=== PATIENT | female | born 1930 | race African-American/Black ===

== ENCOUNTER → 2017-03-01 | Day surgery (SDC) | payer MEDICARE, MEDICAID ==
[~2017-03-01] MED LIST: AMLO5TAB4 PO; ATOR20TA PO; LIDOCAINE HCL 1% 20ML VIAL (Pyxis) INJ ONE; METO5TAB99 PO; POTA40LI2 PO; SODIUM BICARBONATE 4% (2.4MEQ) 5ML VIAL IV ONE; UNKNOWN MEDS
== END | disposition home or self-care (01) ==
LOC: RAD 09:48
PROVIDERS: ATTEND Family Medicine Adult Medicine
DX: E04.1 Nontoxic single thyroid nodule (principal)
CPT/HCPCS: 10022; 76942; 88172; 88173; J3490

== ENCOUNTER 2017-08-15 22:45 | Inpatient (IN) | payer MEDICARE, MEDICAID ==
[~2017-08-15] VITALS: Ht 157.5 cm; Wt 66.8 kg
[~2017-08-15 22:45] MED LIST changes: -LIDOCAINE HCL 1% 20ML VIAL (Pyxis) INJ ONE; -SODIUM BICARBONATE 4% (2.4MEQ) 5ML VIAL IV ONE
[2017-08-15] MEDS ORDERED: ONDANSETRON HCL 4MG/2ML VIAL IV STA (23:46)
[2017-08-15] MEDS ORDERED: SODIUM CHLORIDE 0.9% 1,000 ML IV ONE (23:46)
[2017-08-15] MEDS ORDERED: MORPHINE SULFATE 4 MG/ML CPJ (NOT FOR IM USE) IV STA (23:46)
[2017-08-16 00:14] LABS: BASOPHILS % 0.7 % (0.0-2.0); EOSINOPHILS % 0.5 % (0.0-5.0); HEMATOCRIT. 44.8 % (36.0-48.0); HEMOGLOBIN. 15.3 g/dL (12.0-16.0); LYMPHOCYTES % 12.3 % (20.0-50.0); MEAN CORPUSCULAR HEMOGLOBIN 31.5 pg (28.0-32.0); MEAN CORPUSCULAR VOLUME 92.2 fL (81.0-99.0); MEAN PLATELET VOLUME 8.4 fl (7.4-10.4); NEUTROPHILS % 78.5 % (40.0-76.0); PLATELET 165 x1000/uL (130-400); RED BLOOD CELL COUNT 4.86 mill/uL (4.2-5.4); RED CELL DISTRIBUTION WIDTH 16.2 % (11.6-14.6)
[2017-08-16 00:22] LABS: CHLORIDE 106 mEq/L (98-107)
[2017-08-16 00:34] LABS: CARBON DIOXIDE 23 mEq/L (21-32)
[2017-08-16 01:00] LABS: INR 1.1; PARTIAL THROMBOPLASTIN TIME 22.8 sec (23.4-31.0); PROTHROMBIN TIME 11.1 sec (9.4-11.6)
[2017-08-16] MEDS ORDERED: ENOXAPARIN 100MG/ML SYR SUBCUT ONE (06:30)
[2017-08-16] MEDS ORDERED: CLONIDINE 0.1MG TABLET PO PRN (07:45)
[2017-08-16] MEDS ORDERED: ONDANSETRON HCL 4MG/2ML VIAL IV PRN (07:45)
[2017-08-16] MEDS ORDERED: ACETAMINOPHEN 325MG TABLET PO PRN (07:45)
[2017-08-16] MEDS: DEXT 5%/0.45% NACL 1000ML 1,000 ML IV SCH ×2 (08:18→16:41)
[2017-08-16] MEDS ORDERED: HEPARIN SODIUM 1,000 UNIT/1ML VIAL IV ONE (08:57)
[2017-08-16] MEDS ORDERED: FENTANYL CITRATE/PF 50MCG/ML 2ML VIAL ONE (09:04)
[2017-08-16] MEDS ORDERED: MIDAZOLAM HCL 2 MG/2 ML VIAL ONE ×2 (09:04→09:52)
[2017-08-16] MEDS ORDERED: LIDOCAINE HCL 1% 20ML VIAL (Pyxis) INJ ONE (09:05)
[2017-08-16] MEDS ORDERED: IODIXANOL 320MG/ML 100 ML BOTTLE IV ONE ×2 (09:05→10:46)
[2017-08-16] MEDS ORDERED: ALTEPLASE 8 MG in SODIUM CHLORIDE 0.9% 100 ML ITC SCH (09:15)
[2017-08-16] MEDS ORDERED: ALTEPLASE 2MG/VIAL ITC ONE (09:15)
[2017-08-16] MEDS ORDERED: MORPHINE SULFATE 4 MG/ML CPJ (NOT FOR IM USE) IV PRN (09:45)
[2017-08-16] MEDS ORDERED: IOVERSOL 240MG/ML 100ML BOTTLE IV ONE (10:33)
[2017-08-16] MEDS ORDERED: IOHEXOL-350 100 ML BOTTLE ONE (12:02)
[2017-08-16] MEDS ORDERED: SODIUM CHLORIDE 0.9% 10ML VIAL ONE (12:02)
[2017-08-16 13:52] VITALS: BP 137/83
[2017-08-16 14:06] VITALS: BP 158/94
[2017-08-16 16:00] VITALS: BP 139/80
[2017-08-16 16:16] LABS: CREATINE KINASE MB FRACTION 3.7 ng/mL (0.5-3.6); TROPONIN I 0.13 ng/mL (0.00-0.04)
[2017-08-16] MEDS: RIVAROXABAN 20 MG TABLET PO SCH (17:00)
[2017-08-16 18:00] VITALS: BP 148/88
[2017-08-16] MEDS: LACTATED RINGERS 1,000 ML IV SCH (18:30)
[2017-08-16 20:00] VITALS: BP 119/66
[2017-08-16 22:00] VITALS: BP 124/74
[2017-08-16 23:14] LABS: CREATINE KINASE MB FRACTION 5.1 ng/mL (0.5-3.6)
[2017-08-17] VITALS (12 sets, daily range): BP systolic 101–138; BP diastolic 64–84
[2017-08-17 01:06] LABS: CREATINE KINASE 407 IU/L (26-192)
[2017-08-17] MEDS: LACTATED RINGERS 1,000 ML IV SCH ×2 (06:05→20:32)
[2017-08-17 06:13] LABS: BASOPHILS % 0.4 % (0.0-2.0); EOSINOPHILS % 0.5 % (0.0-5.0); HEMATOCRIT. 43.4 % (36.0-48.0); HEMOGLOBIN. 14.8 g/dL (12.0-16.0); LYMPHOCYTES % 16.4 % (20.0-50.0); MEAN CORPUSCULAR HEMOGLOBIN 31.5 pg (28.0-32.0); MEAN CORPUSCULAR VOLUME 92.2 fL (81.0-99.0); MEAN PLATELET VOLUME 9.3 fl (7.4-10.4); MONOCYTES % 10.8 % (2.0-8.0); NEUTROPHILS % 71.9 % (40.0-76.0); PLATELET 147 x1000/uL (130-400); RED BLOOD CELL COUNT 4.71 mill/uL (4.2-5.4); RED CELL DISTRIBUTION WIDTH 15.9 % (11.6-14.6)
[2017-08-17 06:30] LABS: CARBON DIOXIDE 26 mEq/L (21-32); CHLORIDE 102 mEq/L (98-107)
[2017-08-17 06:52] LABS: CREATINE KINASE 364 IU/L (26-192); HDL CHOLESTEROL 77 mg/dL (40-59); LDL CHOLESTEROL 86 mg/dL (5-100)
[2017-08-17 07:05] LABS: CREATINE KINASE MB FRACTION 4.3 ng/mL (0.5-3.6)
[2017-08-17 08:08] LABS: TROPONIN I 0.55 ng/mL (0.00-0.04)
[2017-08-17] MEDS ORDERED: POTASSIUM CHLORIDE 20MEQ TABLET SR PO NR (13:00)
[2017-08-17] MEDS: RIVAROXABAN 20 MG TABLET PO SCH (17:06)
[2017-08-18] VITALS (12 sets, daily range): BP systolic 108–140; BP diastolic 52–84
[2017-08-18 05:56] LABS: CARBON DIOXIDE 27 mEq/L (21-32); CHLORIDE 105 mEq/L (98-107); TROPONIN I 0.31 ng/mL (0.00-0.04)
[2017-08-18 06:21] LABS: BASOPHILS % 0.4 % (0.0-2.0); EOSINOPHILS % 0.4 % (0.0-5.0); HEMOGLOBIN. 14.3 g/dL (12.0-16.0); LYMPHOCYTES % 12.7 % (20.0-50.0); MEAN CORPUSCULAR HEMOGLOBIN 31.7 pg (28.0-32.0); MEAN PLATELET VOLUME 8.7 fl (7.4-10.4); MONOCYTES % 12.7 % (2.0-8.0); NEUTROPHILS % 73.8 % (40.0-76.0); PLATELET 136 x1000/uL (130-400); RED BLOOD CELL COUNT 4.52 mill/uL (4.2-5.4); RED CELL DISTRIBUTION WIDTH 15.9 % (11.6-14.6)
[2017-08-18] MEDS: LACTATED RINGERS 1,000 ML IV SCH (10:26)
[2017-08-18] MEDS: RIVAROXABAN 20 MG TABLET PO SCH (17:22)
[2017-08-19] VITALS (13 sets, daily range): BP systolic 105–162; BP diastolic 40–96
[2017-08-19 05:57] LABS: BASOPHILS % 0.5 % (0.0-2.0); EOSINOPHILS % 1.1 % (0.0-5.0); HEMATOCRIT. 41.1 % (36.0-48.0); HEMOGLOBIN. 14.1 g/dL (12.0-16.0); LYMPHOCYTES % 12.7 % (20.0-50.0); MEAN CORPUSCULAR VOLUME 93.6 fL (81.0-99.0); MEAN PLATELET VOLUME 8.9 fl (7.4-10.4); MONOCYTES % 13.3 % (2.0-8.0); NEUTROPHILS % 72.4 % (40.0-76.0); PLATELET 138 x1000/uL (130-400); RED CELL DISTRIBUTION WIDTH 16.2 % (11.6-14.6)
[2017-08-19 06:38] LABS: CARBON DIOXIDE 27 mEq/L (21-32); CHLORIDE 105 mEq/L (98-107)
[2017-08-19] MEDS: DILTIAZEM HCL 30MG TABLET PO SCH ×3 (12:00→23:46)
[2017-08-19] MEDS: RIVAROXABAN 20 MG TABLET PO SCH (17:10)
[2017-08-20] VITALS (9 sets, daily range): BP systolic 101–139; BP diastolic 47–90
[2017-08-20] MEDS: DILTIAZEM HCL 30MG TABLET PO SCH ×2 (06:00→12:00)
== END 2017-08-20 14:55 | DRG 271 ==
LOC: ER 23:03 → 5EST 08-16 06:01 → EDBEDREQ 08-16 06:18 → EDBEDREQSVC 08-16 06:18 → ENRESERV 08-16 07:26
PROVIDERS: ADMIT Internal Medicine Nephrology; ATTEND Internal Medicine Nephrology
PROC: 04CL3ZZ Extirpation of Matter from Left Femoral Artery, Percutaneous Approach (ICD-10-PCS; principal; 2017-08-16)
PROC: 04CN3ZZ Extirpation of Matter from Left Popliteal Artery, Percutaneous Approach (ICD-10-PCS; 2017-08-16)
PROC: 047L3ZZ Dilation of Left Femoral Artery, Percutaneous Approach (ICD-10-PCS; 2017-08-16)
PROC: 047N3ZZ Dilation of Left Popliteal Artery, Percutaneous Approach (ICD-10-PCS; 2017-08-16)
PROC: 3E05317 Introduction of Other Thrombolytic into Peripheral Artery, Percutaneous Approach (ICD-10-PCS; 2017-08-16)
PROC: B41G1ZZ Fluoroscopy of Left Lower Extremity Arteries using Low Osmolar Contrast (ICD-10-PCS; 2017-08-16)
DX: I74.3 Embolism and thrombosis of arteries of the lower extremities (principal); E87.2 Acidosis; I48.91 Unspecified atrial fibrillation; F03.90 Unspecified dementia, unspecified severity, without behavioral disturbance, psychotic disturbance, mood disturbance, and anxiety; I99.8 Other disorder of circulatory system; E66.9 Obesity, unspecified; E78.5 Hyperlipidemia, unspecified; H26.9 Unspecified cataract; K57.90 Diverticulosis of intestine, part unspecified, without perforation or abscess without bleeding; K64.9 Unspecified hemorrhoids; M19.90 Unspecified osteoarthritis, unspecified site; E11.9 Type 2 diabetes mellitus without complications; I10 Essential (primary) hypertension; Z96.651 Presence of right artificial knee joint; Z79.01 Long term (current) use of anticoagulants; Z79.82 Long term (current) use of aspirin; Z79.899 Other long term (current) drug therapy; Z79.83 Long term (current) use of bisphosphonates; Z87.891 Personal history of nicotine dependence; Z90.710 Acquired absence of both cervix and uterus; Z68.26 Body mass index [BMI] 26.0-26.9, adult
CPT/HCPCS: 36415; 37184; 37211; 37224; 71010; 72191; 73706; 75710; 80048; 80053; 80061; 82550; 82553; 82962; 83605; 84484; 85025; 85347; 85610; 85730; 87040; 93005; 93306; 93971; 96372; 97116; 97162; 97166; 99291; A4216; C1725; C1757; C1760; C1769; C1893; C1894; J1644; J1650; J2250; J2270; J2405; J2997; J3010; J3490; J7030; J7050; J7120; Q9967; A4315